=== PATIENT | male | born 1990 | race Two or more races ===

== ENCOUNTER 2024-08-04 22:49 | Inpatient (IN) | payer OTHER ==
[~2024-08-04] VITALS: Ht 190.5 cm; Wt 113.4 kg
--- NOTE | 2024-08-04 23:52 | NUR ---
PTE ALERTA Y ORIENTADO X3 REFIERE TENER LA PIERNA DERECHA HINCHADA POR CAUSAS DESCONOCIDAS, LA MISMA LE DUELE AL TACTO MAS SIENTE CALOR, SE BECK SV MAS SE UBICA.
[2024-08-05] MEDS ORDERED: CEFTRIAXONE SODIUM 1,000 MG VIAL IV STA (00:52)
[2024-08-05] MEDS ORDERED: CEFTRIAXONE SODIUM 1,000 MG VIAL ONE (01:42)
[2024-08-05] MEDS ORDERED: LIDOCAINE HCL 1% 10ML VIAL ONE (01:42)
[2024-08-05 02:59] LABS: URINE APPEARANCE Clear; URINE BILIRRUBIN Negative (NEGATIVE); URINE BLOOD Negative; URINE COLOR Dark Yellow; URINE GLUCOSE Negative (NEGATIVE); URINE KETONE Trace (NEGATIVE); URINE LEUKOCYTE Negative; URINE NITRATE Negative; URINE PROTEIN 30 (NEGATIVE)
[2024-08-05 03:05] LABS: URINE EPITHELIAL CELLS 16.2 uL (0.0-38.8); URINE RBC 4.1 uL (0.0-20.8); URINE WBC 11.3 uL (0.0-23.2)
[2024-08-05 03:24] LABS: URINE CAST 0.14 uL (0.0-1.40)
--- NOTE | 2024-08-05 03:24 | NUR ---
PTE EVALUADO POR EL MARVIN BECERRAIE ORDENA TRATAMEINTO LA CUAL SE EJECUTA. SE MANTIENE BAJO OBSERVACION.
[2024-08-05 03:55] LABS: BASO % 0.3 % (0.1-1.2); EOS # 0.07 (0.04-0.54); EOS % 0.7 % (0.7-7.0); HEMOGLOBIN 15.7 g/dL (13.7-17.5); LYMPH # 2.82 (1.18-3.74); LYMPH % 26.4 % (19.3-53.1); MEAN CORPUSCULAR HEMOGLOBIN 29.5 pg (25.6-32.2); MONO # 1.62 (0.24-0.82); NEUT # 6.12 (1.56-6.13); NEUT % 57.1 % (34.0-71.1); PLATELET COUNT 252 K/uL (163-369); RED BLOOD COUNT 5.33 M/uL (4.63-6.08); RED CELL DISTRIBUTION WIDTH 12.5 % (11.6-14.4)
[2024-08-05 03:57] LABS: MONO % 15.1 % (4.7-12.5)
[2024-08-05 04:03] LABS: CALCIUM 9.2 mg/dL (8.5-10.1); CREATININE SERUM 1.29 mg/dL (0.70-1.30); GFR 64.55; INR 1.32; PARTIAL THROMBOPLASTIN TIME 29.6 SECONDS (22.0-34.0); POTASSIUM 3.38 mEq/L (3.5-5.1); PROTHROMBIN TIME 14.1 SECONDS (9.0-11.5)
[2024-08-05] MEDS ORDERED: VANCOMYCIN HCL 1,000 MG VIAL IV SCH (11:57)
[2024-08-05] MEDS ORDERED: PANTOPRAZOLE SODIUM 40 MG/VIAL VIAL IV PUSH SCH (11:58)
[2024-08-05] MEDS ORDERED: PIPERACILLIN/TAZOBACTAM SODIUM 3.375 GM in 0.9 % SODIUM CHLORIDE 100 ML IV SCH (12:00)
[2024-08-05] MEDS ORDERED: SODIUM CHLORIDE 0.45 % 1,000 ML IV SCH (12:00)
[2024-08-05] MEDS ORDERED: VANCOMYCIN HCL 1,000 MG VIAL ONE (14:06)
[2024-08-05] MEDS ORDERED: PIPERACILLIN/TAZOBACTAM SODIUM 3.375 GM VIAL IV ONE (14:06)
[2024-08-05 15:18] VITALS: BP 138/73; O2SAT 97
[2024-08-05 17:47] VITALS: BP 155/79; O2SAT 97
[2024-08-06 01:12] VITALS: BP 133/66; O2SAT 99
[2024-08-06 08:44] VITALS: BP 106/55
[2024-08-06 16:20] VITALS: BP 109/61
[2024-08-06] MEDS ORDERED: VANCOMYCIN HCL 5 MG/ML REDILUIDO IV SCH (21:00)
[2024-08-07 00:25] VITALS: BP 127/67; O2SAT 96
[2024-08-07 06:15] LABS: BASO % 0.4 % (0.1-1.2); EOS # 0.34 (0.04-0.54); EOS % 3.6 % (0.7-7.0); HEMATOCRIT 40.5 % (40.1-51.0); HEMOGLOBIN 13.8 g/dL (13.7-17.5); LYMPH # 2.55 (1.18-3.74); LYMPH % 26.9 % (19.3-53.1); MEAN CORPUSCULAR HEMOGLOBIN 29.4 pg (25.6-32.2); MONO # 0.89 (0.24-0.82); MONO % 9.4 % (4.7-12.5); NEUT # 5.62 (1.56-6.13); NEUT % 59.3 % (34.0-71.1); PLATELET COUNT 289 K/uL (163-369); RED BLOOD COUNT 4.69 M/uL (4.63-6.08); RED CELL DISTRIBUTION WIDTH 12.5 % (11.6-14.4)
[2024-08-07 07:39] LABS: CALCIUM 8.5 mg/dL (8.5-10.1); CREATININE SERUM 1.21 mg/dL (0.70-1.30); GFR 69.49; MAGNESIUM 2.1 mg/dL (1.8-2.4); PHOSPHOROUS 3.6 mg/dL (2.5-4.9); POTASSIUM 3.86 mEq/L (3.5-5.1)
[2024-08-07 09:25] VITALS: BP 131/76
[2024-08-07] MEDS ORDERED: PIPERACILLIN/TAZOBACTAM SODIUM 3.375 GM VIAL IV ONE (15:44)
[2024-08-07 18:28] VITALS: BP 139/69
[2024-08-08 01:27] VITALS: BP 123/65; O2SAT 97
[2024-08-08 07:00] VITALS: BP 117/67; O2SAT 97
[2024-08-08 18:09] VITALS: BP 115/64; O2SAT 97
[2024-08-09 01:24] VITALS: BP 146/80; O2SAT 98
[2024-08-09 07:00] VITALS: BP 106/61; O2SAT 96
[2024-08-09 08:15] LABS: BASO % 0.5 % (0.1-1.2); EOS # 0.51 (0.04-0.54); EOS % 5.4 % (0.7-7.0); HEMATOCRIT 42.8 % (40.1-51.0); HEMOGLOBIN 14.4 g/dL (13.7-17.5); LYMPH # 2.51 (1.18-3.74); LYMPH % 26.7 % (19.3-53.1); MONO % 7.4 % (4.7-12.5); NEUT # 5.58 (1.56-6.13); NEUT % 59.4 % (34.0-71.1); PLATELET COUNT 375 K/uL (163-369); RED BLOOD COUNT 4.96 M/uL (4.63-6.08); RED CELL DISTRIBUTION WIDTH 12.4 % (11.6-14.4)
[2024-08-09 09:04] LABS: ALBUMIN 3.3 gm/dL (3.4-5.0); BILIRUBIN TOTAL 0.54 mg/dL (0.3-1.2); CALCIUM 8.8 mg/dL (8.5-10.1); CREATININE SERUM 1.31 mg/dL (0.70-1.30); GFR 63.41; GLOBULINA 4.2 G/DL (2.4-3.5); MAGNESIUM 2.2 mg/dL (1.8-2.4); POTASSIUM 4.78 mEq/L (3.5-5.1); TOTAL PROTEIN 7.5 gm/dL (6.4-8.2)
[2024-08-09 09:10] LABS: C-REACTIVE PROTEIN 2.04 MG/DL (0.00-0.29)
[2024-08-09 16:00] VITALS: BP 111/43; O2SAT 97
[2024-08-10 01:52] VITALS: BP 150/70; O2SAT 97
[2024-08-10 10:03] VITALS: BP 109/56; O2SAT 97
[2024-08-10] MEDS ORDERED: AMOX1TAB5 PO (12:52)
[2024-08-10] MEDS ORDERED: MONDOXYNE NL100 MG PO (12:54)
== END 2024-08-10 18:15 | disposition home or self-care (01) | DRG 603 ==
LOC: ER 23:39 → SEC-K 08-05 12:18 → MEDI 08-05 12:18 → MEDJ 08-07 14:23
PROVIDERS: General Practice; Internal Medicine Infectious Disease; ADMIT Internal Medicine; ATTEND Internal Medicine
DX: A46 Erysipelas (principal); L03.116 Cellulitis of left lower limb; M79.89 Other specified soft tissue disorders